=== PATIENT | female | born 1970 | race Caucasian/White ===

== ENCOUNTER → 2016-08-15 | Outpatient (REF) | payer OTHER ==
[~2016-08-15] MED LIST: ABIL15TA; ABIL2TAB; ABIL5TAB; ALLE12TA31 PO; BIMA01SOL; BUSP10TA2; BUSP15TA; COGENTIN; DEPA500T2; ELES0.05 OP; EVEN1000 PO; FLON1SPR; HYDR25TAB PO; LISI-538 PO; LORA2CON5 PO; METF500T PO; MULT1TAB10 PO; PRAV10TA PO; ZOLP5TAB PO
== END ==
LOC: M SFHCWAGY 13:32
PROVIDERS: ATTEND Nurse Practitioner Family
DX: Z12.4 Encounter for screening for malignant neoplasm of cervix (principal)

== ENCOUNTER → 2017-07-24 | Outpatient (CLI) | payer OTHER ==
[~2017-07-24] MED LIST changes: -METF500T PO; +METF500T13 PO; -PRAV10TA PO; +PRAV10TA4 PO
[2017-07-24 20:30] LABS: ALBUMIN 3.4 GM/DL (3.2-5.2); ALBUMIN/GLOBULIN RATIO 1.03 (1.00-1.93); ALKALINE PHOSPHATASE 103 U/L (45-117); ALT/SGPT 38 U/L (12-78); ANION GAP 8 MEQ/L (8-16); AST/SGOT 21 U/L (7-37); BILIRUBIN,TOTAL 0.2 MG/DL (0.2-1.0); BLOOD UREA NITROGEN 13 MG/DL (7-18); CALCIUM LEVEL 8.4 MG/DL (8.5-10.1); CARBON DIOXIDE LEVEL 29 MEQ/L (21-32); CHLORIDE LEVEL 103 MEQ/L (98-107); CREATININE FOR GFR 0.66 MG/DL (0.55-1.02); GLOMERULAR FILTRATION RATE > 60.0 (>58); GLUCOSE, FASTING 176 MG/DL (70-105); POTASSIUM SERUM 4.5 MEQ/L (3.5-5.1); SODIUM LEVEL 140 MEQ/L (136-145); TOTAL PROTEIN 6.7 GM/DL (6.4-8.2)
[2017-07-24 20:49] LABS: BASO % 0.3 % (0.0-1.0); EOS # 0.1 10^3/uL (0.0-0.50); EOS % 1.8 % (0.0-3.0); IMMATURE GRANULOCYTE % 0.3 % (0-0); LYMPH # 3.1 10^3/uL (1.5-4.5); LYMPH % 40.5 % (24.0-44.0); MEAN CORPUSCULAR HEMOGLOBIN 33.3 pg (27.0-33.0); MEAN CORPUSCULAR HGB CONC 33.4 g/dl (32.0-36.5); MEAN CORPUSCULAR VOLUME 99.7 fl (80.0-96.0); MONO # 0.4 10^3/uL (0.0-0.8); MONO % 5.6 % (0.0-5.0); NEUTROPHILS % 51.5 % (36.0-66.0); PLATELET COUNT, AUTOMATED 190 10^3/uL (150-450); WHITE BLOOD COUNT 7.7 10^3/uL (4.0-10.0)
== END ==
LOC: M WUC 17:39
PROVIDERS: ATTEND Physician Assistant
DX: F31.9 Bipolar disorder, unspecified (principal)

== ENCOUNTER → 2017-07-29 | Outpatient (CLI) | payer OTHER ==
[2017-07-29 21:10] LABS: BASO % 0.3 % (0.0-1.0); EOS # 0.1 10^3/uL (0.0-0.50); EOS % 1.3 % (0.0-3.0); IMMATURE GRANULOCYTE % 0.3 % (0-0); LYMPH # 2.9 10^3/uL (1.5-4.5); LYMPH % 38.5 % (24.0-44.0); MEAN CORPUSCULAR HEMOGLOBIN 33.3 pg (27.0-33.0); MEAN CORPUSCULAR HGB CONC 33.4 g/dl (32.0-36.5); MEAN CORPUSCULAR VOLUME 99.7 fl (80.0-96.0); MONO # 0.6 10^3/uL (0.0-0.8); NEUTROPHILS # 3.9 10^3/uL (1.8-7.7); NEUTROPHILS % 51.6 % (36.0-66.0); PLATELET COUNT, AUTOMATED 186 10^3/uL (150-450); RED CELL DISTRIBUTION WIDTH 12.3 % (11.5-14.5); WHITE BLOOD COUNT 7.5 10^3/uL (4.0-10.0)
[2017-07-29 21:21] LABS: ALBUMIN 3.2 GM/DL (3.2-5.2); ALBUMIN/GLOBULIN RATIO 1.07 (1.00-1.93); ALKALINE PHOSPHATASE 89 U/L (45-117); ALT/SGPT 36 U/L (12-78); ANION GAP 6 MEQ/L (8-16); AST/SGOT 15 U/L (7-37); BILIRUBIN,TOTAL 0.2 MG/DL (0.2-1.0); BLOOD UREA NITROGEN 15 MG/DL (7-18); CALCIUM LEVEL 8.1 MG/DL (8.5-10.1); CARBON DIOXIDE LEVEL 28 MEQ/L (21-32); CHLORIDE LEVEL 108 MEQ/L (98-107); CHOLESTEROL LEVEL 130 MG/DL (<200); CREATININE FOR GFR 0.59 MG/DL (0.55-1.02); FREE T4 0.99 NG/DL (0.76-1.46); GLOMERULAR FILTRATION RATE > 60.0 (>58); GLUCOSE, FASTING 144 MG/DL (70-105); SODIUM LEVEL 142 MEQ/L (136-145); TOTAL PROTEIN 6.2 GM/DL (6.4-8.2); TRIGLYCERIDES LEVEL 111 MG/DL (<150)
[2017-08-02 00:10] LABS: CK TOTAL 48 U/L (24-173)
== END ==
LOC: M WUC 15:56
PROVIDERS: ATTEND Nurse Practitioner
DX: E11.9 Type 2 diabetes mellitus without complications (principal); I10 Essential (primary) hypertension; R53.83 Other fatigue

== ENCOUNTER → 2019-05-22 | Outpatient (CLI) | payer OTHER ==
[~2019-05-22] MED LIST changes: +HYDR-2541 PO; -HYDR25TAB PO
[2019-05-22 18:10] LABS: BASO % 0.3 % (0.0-1.0); EOS # 0.2 10^3/uL (0.0-0.5); EOS % 2.6 % (0.0-3.0); HEMATOCRIT 38.2 % (36.0-47.0); HEMOGLOBIN 12.5 g/dl (12.0-15.5); LYMPH # 2.5 10^3/uL (1.5-5.0); LYMPH % 41.8 % (24.0-44.0); MEAN CORPUSCULAR HEMOGLOBIN 33.2 pg (27.0-33.0); MEAN CORPUSCULAR HGB CONC 32.7 g/dl (32.0-36.5); MEAN CORPUSCULAR VOLUME 101.3 fl (80.0-96.0); MONO # 0.5 10^3/uL (0.0-0.8); MONO % 8.7 % (0.0-5.0); NEUTROPHILS # 2.7 10^3/uL (1.5-8.5); NEUTROPHILS % 46.4 % (36.0-66.0); PLATELET COUNT, AUTOMATED 152 10^3/uL (150-450); RED BLOOD COUNT 3.77 10^6/uL (4.00-5.40); WHITE BLOOD COUNT 5.9 10^3/uL (4.0-10.0)
[2019-05-22 18:27] LABS: ALBUMIN 3.2 GM/DL (3.2-5.2); ALT/SGPT 24 U/L (12-78); BILIRUBIN,TOTAL 0.5 MG/DL (0.2-1.0); BLOOD UREA NITROGEN 17 MG/DL (7-18); CALCIUM LEVEL 8.7 MG/DL (8.5-10.1); CARBON DIOXIDE LEVEL 29 MEQ/L (21-32); CHLORIDE LEVEL 104 MEQ/L (98-107); CHOLESTEROL LEVEL 114 MG/DL (<200); CHOLESTEROL RISK RATIO 2.035 (<5); CPK CREATINE PHOSPHOKINASE 45 U/L (26-192); CREATININE FOR GFR 0.68 MG/DL (0.55-1.30); FREE T4 1.01 NG/DL (0.76-1.46); GLOMERULAR FILTRATION RATE > 60.0 (>51); GLUCOSE, FASTING 155 MG/DL (70-100); HDL CHOLESTEROL 56 MG/DL (>40); LDL CHOLESTEROL 47 MG/DL (<100); NON-HDL-C 58 MG/DL; POTASSIUM SERUM 4.7 MEQ/L (3.5-5.1); SODIUM LEVEL 139 MEQ/L (136-145); TOTAL PROTEIN 6.1 GM/DL (6.4-8.2); TRIGLYCERIDES LEVEL 57 MG/DL (<150)
[2019-05-22 18:31] LABS: HEMOGLOBIN A1c 6.6 %
[2019-05-22 19:28] LABS: PLATELET ESTIMATE NORMAL (NORMAL)
== END ==
LOC: M WUC 10:46
PROVIDERS: ATTEND Nurse Practitioner
DX: I10 Essential (primary) hypertension (principal); E11.9 Type 2 diabetes mellitus without complications; G47.00 Insomnia, unspecified; Z79.899 Other long term (current) drug therapy

== ENCOUNTER → 2020-03-31 | Outpatient (CLI) | payer OTHER ==
[2020-03-31 15:32] LABS: HEMATOCRIT 40.5 % (36.0-47.0); HEMOGLOBIN 13.5 g/dl (12.0-15.5); MEAN CORPUSCULAR HGB CONC 33.3 g/dl (32.0-36.5); PLATELET COUNT, AUTOMATED 168 10^3/uL (150-450); RED BLOOD COUNT 4.09 10^6/uL (4.00-5.40); WHITE BLOOD COUNT 6.1 10^3/uL (4.0-10.0)
[2020-03-31 15:57] LABS: ALBUMIN 3.5 GM/DL (3.2-5.2); ALT/SGPT 36 U/L (12-78); BILIRUBIN,TOTAL 0.5 MG/DL (0.2-1.0); BLOOD UREA NITROGEN 17 MG/DL (7-18); CALCIUM LEVEL 9.5 MG/DL (8.5-10.1); CARBON DIOXIDE LEVEL 31 MEQ/L (21-32); CHLORIDE LEVEL 104 MEQ/L (98-107); CHOLESTEROL LEVEL 109 MG/DL (<200); CHOLESTEROL RISK RATIO 2.137 (<5); CPK CREATINE PHOSPHOKINASE 54 U/L (26-192); CREATININE FOR GFR 0.71 MG/DL (0.55-1.30); GLOMERULAR FILTRATION RATE > 60.0 (>51); GLUCOSE, FASTING 163 MG/DL (70-100); HDL CHOLESTEROL 51 MG/DL (>40); LDL CHOLESTEROL 46 MG/DL (<100); NON-HDL-C 58 MG/DL; POTASSIUM SERUM 4.7 MEQ/L (3.5-5.1); SODIUM LEVEL 141 MEQ/L (136-145); TOTAL PROTEIN 6.8 GM/DL (6.4-8.2); TRIGLYCERIDES LEVEL 59 MG/DL (<150)
[2020-03-31 16:06] LABS: HEMOGLOBIN A1c 7.2 %
== END ==
LOC: M WUC 11:28
PROVIDERS: ATTEND Family Medicine
DX: E11.9 Type 2 diabetes mellitus without complications (principal); I10 Essential (primary) hypertension; K58.9 Irritable bowel syndrome, unspecified; F31.9 Bipolar disorder, unspecified

== ENCOUNTER → 2020-03-31 | Outpatient (CLI) | payer OTHER ==
[2020-03-31 15:33] LABS: BASO % 0.5 % (0.0-1.0); EOS # 0.2 10^3/uL (0.0-0.5); EOS % 2.6 % (0.0-3.0); HEMATOCRIT 38.8 % (36.0-47.0); HEMOGLOBIN 13.3 g/dl (12.0-15.5); LYMPH # 2.4 10^3/uL (1.5-5.0); LYMPH % 41.6 % (24.0-44.0); MEAN CORPUSCULAR HEMOGLOBIN 33.9 pg (27.0-33.0); MEAN CORPUSCULAR HGB CONC 34.3 g/dl (32.0-36.5); MONO # 0.4 10^3/uL (0.0-0.8); MONO % 6.4 % (0.0-5.0); NEUTROPHILS # 2.8 10^3/uL (1.5-8.5); NEUTROPHILS % 48.6 % (36.0-66.0); PLATELET COUNT, AUTOMATED 178 10^3/uL (150-450); RED BLOOD COUNT 3.92 10^6/uL (4.00-5.40); WHITE BLOOD COUNT 5.8 10^3/uL (4.0-10.0)
[2020-03-31 15:54] LABS: ALBUMIN 3.4 GM/DL (3.2-5.2); ALT/SGPT 34 U/L (12-78); BILIRUBIN,TOTAL 0.5 MG/DL (0.2-1.0); BLOOD UREA NITROGEN 17 MG/DL (7-18); CALCIUM LEVEL 9.3 MG/DL (8.5-10.1); CARBON DIOXIDE LEVEL 30 MEQ/L (21-32); CHLORIDE LEVEL 105 MEQ/L (98-107); CREATININE FOR GFR 0.69 MG/DL (0.55-1.30); GLOMERULAR FILTRATION RATE > 60.0 (>51); GLUCOSE, FASTING 159 MG/DL (70-100); POTASSIUM SERUM 4.3 MEQ/L (3.5-5.1); SODIUM LEVEL 141 MEQ/L (136-145); TOTAL PROTEIN 6.6 GM/DL (6.4-8.2); VALPROIC ACID (DEPAKOTE) 91.6 UG/ML (50.0-100.0)
== END ==
LOC: M WUC 11:32
PROVIDERS: ATTEND Physician Assistant
DX: F31.9 Bipolar disorder, unspecified (principal)

== ENCOUNTER → 2021-09-07 | Outpatient (CLI) | payer OTHER ==
[~2021-09-07] MED LIST changes: -LISI-538 PO; +LISI20TA33 PO
== END ==
LOC: M LABSMTC 13:06
PROVIDERS: ATTEND Family Medicine
DX: Z20.822 Contact with and (suspected) exposure to COVID-19 (principal)
CPT/HCPCS: C9803; U0003

== ENCOUNTER → 2022-04-05 | Outpatient (CLI) | payer OTHER | LOC: M RAD 16:14 | PROVIDERS: ATTEND Registered Nurse | DX: R20.2 Paresthesia of skin (principal); M71.22 Synovial cyst of popliteal space [Baker], left knee ==

== ENCOUNTER → 2023-04-16 | Outpatient (REF) | payer OTHER | LOC: M SFHCWAGY 17:54 | PROVIDERS: ATTEND Nurse Practitioner Family | DX: Z12.4 Encounter for screening for malignant neoplasm of cervix (principal) | CPT/HCPCS: 87624; G0123; G0463 ==

== ENCOUNTER → 2025-07-14 | Outpatient (CLI) | payer OTHER ==
[~2025-07-14] MED LIST changes: +PRAV10TA PO; -PRAV10TA4 PO; -ZOLP5TAB PO; +ZOLP5TAB9 PO
[2025-07-16 14:18] LABS: HPV APTIMA Not Detected (Not Detected)
== END ==
LOC: M PLALAB 15:06
PROVIDERS: ATTEND Physician Assistant
DX: Z12.4 Encounter for screening for malignant neoplasm of cervix (principal); Z79.899 Other long term (current) drug therapy
CPT/HCPCS: 36415; 82306; 87624; G0123